=== PATIENT | male | born 1960 | race American Indian/Alaskan Native ===

== ENCOUNTER 2018-09-02 14:44 | Outpatient (CLI) | payer MEDICARE ==
--- NOTE | 2018-09-02 15:59 | XRay Report ---
PA AND LATERAL CXR HISTORY: Cough. COMPARISON: None FINDINGS: Cardiac: Normal heart size. Lungs: A wedge-shaped opacity of the anterior medial right upper lobe. The lungs are otherwise clear . No pleural effusions. No pneumothorax. Pulmonary vascularity: Normal. Support hardware: None. Additional findings: None. IMPRESSION: 1. Partial atelectasis of the right upper lobe which is of uncertain age. Consider further evaluation with CT chest. 2. No mass or nodule. 3. No pneumonia. Signer Name: Gaudencio Pettit MD Signed: 09/02/2018 3:54 PM Workstation Name: [id number]
== END 2018-09-02 14:45 | disposition home or self-care (01) ==
LOC: SPVIMAG 14:44
PROVIDERS: ATTEND Internal Medicine Hematology & Oncology
DX: R05 Cough (principal); J98.11 Atelectasis
CPT/HCPCS: 71046